=== PATIENT | female | born 2005 | race Caucasian/White ===

== ENCOUNTER 2025-09-17 04:18 | Day surgery (SDC) | payer OTHER, SELFPAY ==
[2025-09-16] VITALS (17 sets, daily range): BP systolic 78–114; BP diastolic 43–80; BMI 21.1
[2025-09-16 20:03] LABS: Urine Character Clear (Clear)
[2025-09-16 20:12] LABS: Glucose - Point of Care 110 mg/dl (70-99)
[2025-09-16 20:13] LABS: Hematocrit 36.3 % (37.0-47.0); Hemoglobin 12.4 g/dL (12.0-16.0); Mean Corp Hgb Conc. 34.2 g/dL (33.0-37.0); Mean Corpuscular Volume 93.3 fL (81.0-99.0); Nucleated Red Blood Cells % 0 %; Platelet Count 244 10^3/uL (130-400); Red Cell Dist. Width 12.3 % (11.5-14.5)
[2025-09-16 20:25] LABS: ALT (SGPT) 14 U/L (0-35); AST (SGOT) 20 U/L (14-36); Albumin 4.5 g/dl (3.5-5.0); Alkaline Phosphatase 70 U/L (38-126); Blood Urea Nitrogen 16 mg/dl (7-17); Calcium 9.1 mg/dl (8.4-10.2); Carbon Dioxide 23 mmol/L (22-30); Chloride 106 mmol/L (98-107); Glucose 78 mg/dl (70-99); Lipase 119 U/L (23-300); Potassium 4.4 mmol/L (3.5-5.1); Sodium 135 mmol/L (135-145); Total Protein 7.1 g/dl (6.3-8.2); eGFR > 60.00
[2025-09-16 20:32] LABS: Urine Squamous Cell >30 /LPF (Few)
[2025-09-16 20:33] LABS: Urine Red Blood Cell 0-2 /HPF (0-2)
[2025-09-16] MEDS: NSS 1000 IV (20:33)
[2025-09-16 20:36] LABS: HCG, Serum Qualitative Screen Negative
--- NOTE | 2025-09-16 20:37 | ED.GENMED ---
History of Present Illness
<Taylor Gutierrez PA-C - Last Filed: 09/17/25 07:48>
General
Chief Complaint: Abdominal Pain
Source: patient and family
Exam Limitations: none
Time Seen by Provider: 09/16/25 20:17
History of Present Illness
History of Present Illness:
20yoF with a history of prior ovarian cyst presenting for evaluation of abdominal pain. She reports an abrupt onset of right lower quadrant abdominal pain that began around noon today while her boyfriend was massaging her. Pain is described as
feeling like severe menstrual cramps. She had similar symptoms several years ago and was seen in the ED at that time and was diagnosed with a ruptured cyst. She was hypotensive in triage and brought immediately to an exam room. She denies any
syncope. No urinary symptoms. No prior abdominal surgeries. Her last menstrual period was 3 weeks ago and she denies chance of .
Phy Exam
<Taylor Gutierrez PA-C - Last Filed: 09/17/25 07:48>
Physical Exam
Physical Exam:
Pale, diaphoretic, in acute pain
General Physical Exam
General Presentation: moderate distress
General Skin: warm, diaphoretic and pale
General Mental: alert
ENT Exam
ENT Exam: normocephalic
Pulmonary Exam
Pulmonary Exam: no respiratory distress
Gastrointestinal Exam
Gastrointestinal Exam: soft, non distended and other (+Focal tenderness in R abdomen with rebound.)
Neurological Exam
Neurological Exam: alert
[place] Coma Scale
Eye Opening: Spontaneous
Verbal Response: Oriented
Motor Response: Obeys Commands
GCS Total Score: 15
Skin Exam
Skin Exam: diaphoresis and pallor
Psychiatric Exam
Psychiatric Exam: normal mood/affect
<Jose Taylor DO - Last Filed: 09/17/25 00:52>
[place] Coma Scale
GCS Total Score: 15
Course
<Taylor Gutierrez PA-C - Last Filed: 09/17/25 07:48>
Orders/Labs/Results
Orders:
Orders
09/16/25 19:57
Complete Blood Count/With Diff Urgent
Comprehensive Metabolic Panel Urgent
HCG, Serum Qualitative Screen Urgent
Comment: ADD ON
Lipase Urgent
Urinalysis Reflex To Culture Urgent
Date Specimen was Collected: 09/16/25
Time Specimen was Collected: 19:49
Urine Microscopic Reflex Cult Urgent
Urine Culture Urgent
ROLLY Source: U
Specimen Description:
Date Specimen was Collected: 09/16/25
Time Specimen was Collected: 19:49
09/16/25 20:27
US Pelvis Transvaginal Only Stat
Reason For Exam: severe RLQ pain, r/o torsion
09/16/25 20:28
0.9% Sodium Chloride 1000 ml [Nss] 1,000 ml IV BOLUS
09/16/25 20:36
Fentanyl Citrate/Pf [Sublimaze] 50 mcg IV NOW STA
09/16/25 20:46
Type+Screen Urgent
09/16/25 21:40
CT Abd/pel W Iv And Oral Contr Urgent
Comment:
Reason For Exam: RLQ pain
Iohexol [Omnipaque] See Protocol PO NOW STA
09/16/25 21:47
Fentanyl Citrate/Pf [Sublimaze] 50 mcg IV NOW STA
Ketorolac [Toradol] 15 mg IV NOW STA
09/16/25 21:48
Ondansetron Injectable [Zofran] 4 mg IV NOW STA
09/16/25 23:26
Fentanyl Citrate/Pf [Sublimaze] 50 mcg IV NOW STA
09/16/25 23:43
Hemoglobin Urgent
09/17/25 00:48
Fentanyl Citrate/Pf [Sublimaze] 25 mcg IV [id number] PRN
HYDROmorphone [Dilaudid] 0.25 mg IV PACU-Q5MPRN PRN
HYDROmorphone [Dilaudid] 0.5 mg IV PACU-Q5MPRN PRN
Ondansetron Injectable [Zofran] 4 mg IV PACU-ONCEPRN PRN
Prochlorperazine [Compazine] 5 mg IV PACU-ONCEPRN PRN
Notify MD As Directed
Notify physician if: for SDS patients with known or suspected sleep obstructive sleep apnea, monitor in the
PACU.
Notify MD for any apneic/desaturation episodes
09/17/25 01:00
Normosol (Mult Electrolytes) [Normosol-R/Plasmalyte-A] 1,000 ml IV PER PROTOCOL
09/17/25 01:38
Fentanyl Citrate/Pf [Sublimaze] 100 mcg .ROUTE .STK-MED ONE
Midazolam HCl [Versed] 2 mg .ROUTE .STK-MED ONE
09/17/25 01:45
Bupivacaine Mpf 0.25% [Sensorcaine-Mpf 0.25% Vial] 30 ml .ROUTE .STK-MED ONE
09/17/25 01:56
Fentanyl Citrate/Pf [Sublimaze] 25 mcg IV [id number] PRN
HYDROmorphone [Dilaudid] 0.25 mg IV PACU-Q5MPRN PRN
HYDROmorphone [Dilaudid] 0.5 mg IV PACU-Q5MPRN PRN
Ondansetron Injectable [Zofran] 4 mg IV PACU-ONCEPRN PRN
Prochlorperazine [Compazine] 5 mg IV PACU-ONCEPRN PRN
09/17/25 02:00
Normosol (Mult Electrolytes) [Normosol-R/Plasmalyte-A] 1,000 ml IV PER PROTOCOL
09/17/25 02:10
Dexamethasone Sod Phosphate [Decadron] 20 mg .ROUTE .STK-MED ONE
Lidocaine HCl/Pf [Xylocaine-Mpf 1% Vial] 50 mg .ROUTE .STK-MED ONE
Metoclopramide [Reglan] 10 mg .ROUTE .STK-MED ONE
Ondansetron Injectable [Zofran] 4 mg .ROUTE .STK-MED ONE
Phenylephrine HCl/0.9% NaCl [[place]ot-Synephrine] 1,000 mcg .ROUTE .STK-MED ONE
Propofol [Diprivan] 20 ml .ROUTE .STK-MED
Rocuronium [place] [Rocuronium] 50 mg .ROUTE .STK-MED ONE
09/17/25 02:26
ePHEDrine SULFATE [Emerphed] 50 mg .ROUTE .STK-MED ONE
09/17/25 02:29
Sugammadex Sodium [Bridion] 200 mg .ROUTE .STK-MED ONE
09/17/25 02:31
HYDROmorphone [Dilaudid] 1 mg .ROUTE .STK-MED ONE
Propofol [Diprivan] 20 ml .ROUTE .STK-MED
09/17/25 02:33
Acetaminophen 1000MG/100Ml [Ofirmev] 1,000 mg in 100 ml .ROUTE .STK-MED
09/17/25 04:04
Admit/Transfer Patient As Directed
Co-Sign Provider:
Level of Care: Post Proc/Surg Recovery
Assign to:: Medical/Surgical
Physician / Group: Chinedu
Transfer to: Medical/Surgical
Diagnosis: hemorrhagic left ovarian cyst with hemoperitoneum
Patient Condition: Good
Reason for Hospitalization: s/p dx lap evacuation of hemoperitoneum; left ovarian cystotomy
Expected length of stay greater than two midnights?: No
ELOS- Estimated Length of Stay in days: 1
I certify the patient meets the requirements for IP care: Yes
Reason for Overnight Stay: Bleeding/Bleeding Risk
PRN Pain Medication Management As Directed
May give lesser potent ordered pain med per pt: Yes
preference::
Protocol:: Medication orders for pain may be administered in a
manner that supports deferring to patient preference
when the pt is:
- Requesting an ordered lesser potent pain medication.
Least to most potent pain medications are defined
as: acetaminophen < NSAID < tramadol < opioids
(morphine, oxycodone, hydromorphone).
- Requesting a lesser dose of the same medication IF
ORDERED.
- Requesting a less intrusive route of administration
if both routes are prescribed by the provider (PO <
IV).
09/17/25 04:24
Acetaminophen [Tylenol] 650 mg PO Q4HPRN PRN
Ondansetron Injectable [Zofran] 4 mg IV Q6HPRN PRN
Oxycodone [Roxicodone] 2.5 mg PO Q4HPRN PRN
Oxycodone [Roxicodone] 5 mg PO Q4HPRN PRN
Simethicone [Mylicon] 80 mg PO Q6HPRN PRN
09/17/25 04:24
Admit Patient As Directed
Co-Sign Provider:
Level of Care: Post Proc/Surg Recovery
Assign to:: Medical/Surgical
Physician / Group: Chinedu
Diagnosis: s/p dx laparoscopy, evacuation hemoperitoneum, cystotomy left ovarian cyst
Patient Condition: Good
Reason for Hospitalization: dx laparoscopy left ovarian cystotomy, evacuation hemoperitoneum
Expected length of stay greater than two midnights?: No
ELOS- Estimated Length of Stay in days: 1
I certify the patient meets the requirements for IP care: Yes
Reason for Overnight Stay: Bleeding/Bleeding Risk
Diagnosis: post-operative hysterectomy
Activity As Directed
Activity Level: Out of Bed-Early Mobility
INT (Intravenous Needle Therapy) As Directed
Intake/ Output As Directed
Frequency: Per unit guidelines
Call for Urine Output less than: 30 mL over 1 hour
Comment: Strict Intake and Output
Notify MD As Directed
Notify physician if: Call doctor for temperature >100.4 F, systolic blood pressure > 150 or < 90, urine output
less than 30 mL over 1 hour, Pulse > 100 or < 50
Observe for Vaginal Bleeding As Directed
Pneumatic Compression Sleeves As Directed
Type: Knee high
Vital Signs As Directed
Frequency: Post-operative guidelines
Call for:: temp > 100.4 F, SBP > 150 or < 90, Pulse > 100 or < 50
Rx Incentive Spirometry [RESP] Routine
Frequency: q1h while awake
DX Deep Vein Thrombosis Video Routine
09/17/25 05:00
Ketorolac [Toradol] 15 mg IV Q6H
Lactated Ringers [Lr] 1,000 ml IV 125 mls/hr
09/17/25 Breakfast
Regular
At Your Request: Full Participation
Does patient need a safe tray?: Yes
Blood Urea Nitrogen IN AM
Creatinine IN AM
Electrolytes IN AM
09/17/25 07:06
Complete Blood Count/No Diff IN AM
Abnormal Lab Results
09/16/25 09/16/25 09/16/25
19:57 20:04 23:43
WBC 18.0 H 10^3/uL
(4.8-10.8)
RBC 3.89 L 10^6/uL
(4.20-5.40)
Hgb 9.0 L D g/dL
(12.0-16.0)
Hct 36.3 L %
(37.0-47.0)
MCH 31.9 H pg
(27.0-31.0)
Abs Immat Gran (auto) 0.1 H 10^3/uL
(0-0.05)
Absolute Neuts (auto) 14.4 H 10^3/uL
(1.4-6.5)
Absolute Monos (auto) 0.7 H 10^3/uL
(0.1-0.6)
Neutrophils % 79.9 H %
(42.2-75.2)
Lymphocytes % 15.1 L %
(20.5-51.1)
Leukocyte Esterase Rfl 1+ A
(Negative)
Urine Bacteria (Reflex) Many A
(Negative)
Urine Albumin (Reflex) 1+ A
(Neg - Trace)
POC Glucose 110 H mg/dl
(70-99)
09/16/25 23:43
09/16/25 19:57
Vital Signs
Initial and Last Documented VS:
Initial Vital Signs
Temp Pulse Resp BP Pulse Ox
98.4 F 127 22 114/80 99
09/16/25 19:45 09/16/25 19:45 09/16/25 19:45 09/16/25 19:45 09/16/25 19:45
Last Documented Vital Signs
Temp Pulse Resp BP Pulse Ox
97.4 F 77 19 99/48 98
09/17/25 06:00 09/17/25 06:00 09/17/25 06:00 09/17/25 06:00 09/17/25 06:00
[place];Jose Taylor, DO - Last Filed: 09/17/25 00:52>
Orders/Labs/Results
Orders:
Orders
09/16/25 19:57
Complete Blood Count/With Diff Urgent
Comprehensive Metabolic Panel Urgent
HCG, Serum Qualitative Screen Urgent
Comment: ADD ON
Lipase Urgent
Urinalysis Reflex To Culture Urgent
Date Specimen was Collected: 09/16/25
Time Specimen was Collected: 19:49
Urine Microscopic Reflex Cult Urgent
Urine Culture Urgent
ROLLY Source: U
Specimen Description:
Date Specimen was Collected: 09/16/25
Time Specimen was Collected: 19:49
09/16/25 20:27
US Pelvis Transvaginal Only Stat
Reason For Exam: severe RLQ pain, r/o torsion
09/16/25 20:28
0.9% Sodium Chloride 1000 ml [Nss] 1,000 ml IV BOLUS
09/16/25 20:36
Fentanyl Citrate/Pf [Sublimaze] 50 mcg IV NOW STA
09/16/25 20:46
Type+Screen Urgent
09/16/25 21:40
CT Abd/pel W Iv And Oral Contr Urgent
Comment:
Reason For Exam: RLQ pain
Iohexol [Omnipaque] See Protocol PO NOW STA
09/16/25 21:47
Fentanyl Citrate/Pf [Sublimaze] 50 mcg IV NOW STA
Ketorolac [Toradol] 15 mg IV NOW STA
09/16/25 21:48
Ondansetron Injectable [Zofran] 4 mg IV NOW STA
09/16/25 23:26
Fentanyl Citrate/Pf [Sublimaze] 50 mcg IV NOW STA
09/16/25 23:43
Hemoglobin Urgent
09/17/25 00:48
Fentanyl Citrate/Pf [Sublimaze] 25 mcg IV [id number] PRN
HYDROmorphone [Dilaudid] 0.25 mg IV PACU-Q5MPRN PRN
HYDROmorphone [Dilaudid] 0.5 mg IV PACU-Q5MPRN PRN
Ondansetron Injectable [Zofran] 4 mg IV PACU-ONCEPRN PRN
Prochlorperazine [Compazine] 5 mg IV PACU-ONCEPRN PRN
Notify MD As Directed
Notify physician if: for SDS patients with known or suspected sleep obstructive sleep apnea, monitor in the
PACU.
Notify MD for any apneic/desaturation episodes
09/17/25 01:00
Normosol (Mult Electrolytes) [Normosol-R/Plasmalyte-A] 1,000 ml IV PER PROTOCOL
09/17/25 01:38
Fentanyl Citrate/Pf [Sublimaze] 100 mcg .ROUTE .STK-MED ONE
Midazolam HCl [Versed] 2 mg .ROUTE .STK-MED ONE
09/17/25 01:45
Bupivacaine Mpf 0.25% [Sensorcaine-Mpf 0.25% Vial] 30 ml .ROUTE .STK-MED ONE
09/17/25 01:56
Fentanyl Citrate/Pf [Sublimaze] 25 mcg IV [id number] PRN
HYDROmorphone [Dilaudid] 0.25 mg IV PACU-Q5MPRN PRN
HYDROmorphone [Dilaudid] 0.5 mg IV PACU-Q5MPRN PRN
Ondansetron Injectable [Zofran] 4 mg IV PACU-ONCEPRN PRN
Prochlorperazine [Compazine] 5 mg IV PACU-ONCEPRN PRN
09/17/25 02:00
Normosol (Mult Electrolytes) [Normosol-R/Plasmalyte-A] 1,000 ml IV PER PROTOCOL
09/17/25 02:10
Dexamethasone Sod Phosphate [Decadron] 20 mg .ROUTE .STK-MED ONE
Lidocaine HCl/Pf [Xylocaine-Mpf 1% Vial] 50 mg .ROUTE .STK-MED ONE
Metoclopramide [Reglan] 10 mg .ROUTE .STK-MED ONE
Ondansetron Injectable [Zofran] 4 mg .ROUTE .STK-MED ONE
Phenylephrine HCl/0.9% NaCl [[place]-Synephrine] 1,000 mcg .ROUTE .STK-MED ONE
Propofol [Diprivan] 20 ml .ROUTE .STK-MED
Rocuronium [place] [Rocuronium] 50 mg .ROUTE .STK-MED ONE
09/17/25 02:26
ePHEDrine SULFATE [Emerphed] 50 mg .ROUTE .STK-MED ONE
09/17/25 02:29
Sugammadex Sodium [Bridion] 200 mg .ROUTE .STK-MED ONE
09/17/25 02:31
HYDROmorphone [Dilaudid] 1 mg .ROUTE .STK-MED ONE
Propofol [Diprivan] 20 ml .ROUTE .STK-MED
09/17/25 02:33
Acetaminophen 1000MG/100Ml [Ofirmev] 1,000 mg in 100 ml .ROUTE .STK-MED
09/17/25 04:04
Admit/Transfer Patient As Directed
Co-Sign Provider:
Level of Care: Post Proc/Surg Recovery
Assign to:: Medical/Surgical
Physician / Group: Chinedu
Transfer to: Medical/Surgical
Diagnosis: hemorrhagic left ovarian cyst with hemoperitoneum
Patient Condition: Good
Reason for Hospitalization: s/p dx lap evacuation of hemoperitoneum; left ovarian cystotomy
Expected length of stay greater than two midnights?: No
ELOS- Estimated Length of Stay in days: 1
I certify the patient meets the requirements for IP care: Yes
Reason for Overnight Stay: Bleeding/Bleeding Risk
PRN Pain Medication Management As Directed
May give lesser potent ordered pain med per pt: Yes
preference::
Protocol:: Medication orders for pain may be administered in a
manner that supports deferring to patient preference
when the pt is:
- Requesting an ordered lesser potent pain medication.
Least to most potent pain medications are defined
as: acetaminophen < NSAID < tramadol < opioids
(morphine, oxycodone, hydromorphone).
- Requesting a lesser dose of the same medication IF
ORDERED.
- Requesting a less intrusive route of administration
if both routes are prescribed by the provider (PO <
IV).
09/17/25 04:24
Acetaminophen [Tylenol] 650 mg PO Q4HPRN PRN
Ondansetron Injectable [Zofran] 4 mg IV Q6HPRN PRN
Oxycodone [Roxicodone] 2.5 mg PO Q4HPRN PRN
Oxycodone [Roxicodone] 5 mg PO Q4HPRN PRN
Simethicone [Mylicon] 80 mg PO Q6HPRN PRN
09/17/25 04:24
Admit Patient As Directed
Co-Sign Provider:
Level of Care: Post Proc/Surg Recovery
Assign to:: Medical/Surgical
Physician / Group: Chindeu
Diagnosis: s/p dx laparoscopy, evacuation hemoperitoneum, cystotomy left ovarian cyst
Patient Condition: Good
Reason for Hospitalization: dx laparoscopy left ovarian cystotomy, evacuation hemoperitoneum
Expected length of stay greater than two midnights?: No
ELOS- Estimated Length of Stay in days: 1
I certify the patient meets the requirements for IP care: Yes
Reason for Overnight Stay: Bleeding/Bleeding Risk
Diagnosis: post-operative hysterectomy
Activity As Directed
Activity Level: Out of Bed-Early Mobility
INT (Intravenous Needle Therapy) As Directed
Intake/ Output As Directed
Frequency: Per unit guidelines
Call for Urine Output less than: 30 mL over 1 hour
Comment: Strict Intake and Output
Notify MD As Directed
Notify physician if: Call doctor for temperature >100.4 F, systolic blood pressure > 150 or < 90, urine output
less than 30 mL over 1 hour, Pulse > 100 or < 50
Observe for Vaginal Bleeding As Directed
Pneumatic Compression Sleeves As Directed
Type: Knee high
Vital Signs As Directed
Frequency: Post-operative guidelines
Call for:: temp > 100.4 F, SBP > 150 or < 90, Pulse > 100 or < 50
Rx Incentive Spirometry [RESP] Routine
Frequency: q1h while awake
DX Deep Vein Thrombosis Video Routine
09/17/25 05:00
Ketorolac [Toradol] 15 mg IV Q6H
Lactated Ringers [Lr] 1,000 ml IV 125 mls/hr
09/17/25 Breakfast
Regular
At Your Request: Full Participation
Does patient need a safe tray?: Yes
Blood Urea Nitrogen IN AM
Creatinine IN AM
Electrolytes IN AM
09/17/25 07:06
Complete Blood Count/No Diff IN AM
Abnormal Lab Results
09/16/25 09/16/25 09/16/25
19:57 20:04 23:43
WBC 18.0 H 10^3/uL
(4.8-10.8)
RBC 3.89 L 10^6/uL
(4.20-5.40)
Hgb 9.0 L D g/dL
(12.0-16.0)
Hct 36.3 L %
(37.0-47.0)
MCH 31.9 H pg
(27.0-31.0)
Abs Immat Gran (auto) 0.1 H 10^3/uL
(0-0.05)
Absolute Neuts (auto) 14.4 H 10^3/uL
(1.4-6.5)
Absolute Monos (auto) 0.7 H 10^3/uL
(0.1-0.6)
Neutrophils % 79.9 H %
(42.2-75.2)
Lymphocytes % 15.1 L %
(20.5-51.1)
Leukocyte Esterase Rfl 1+ A
(Negative)
Urine Bacteria (Reflex) Many A
(Negative)
Urine Albumin (Reflex) 1+ A
(Neg - Trace)
POC Glucose 110 H mg/dl
(70-99)
09/16/25 23:43
09/16/25 19:57
Vital Signs
Initial and Last Documented VS:
Initial Vital Signs
Temp Pulse Resp BP Pulse Ox
98.4 F 127 22 114/80 99
09/16/25 19:45 09/16/25 19:45 09/16/25 19:45 09/16/25 19:45 09/16/25 19:45
Last Documented Vital Signs
Temp Pulse Resp BP Pulse Ox
97.4 F 77 19 99/48 98
09/17/25 06:00 09/17/25 06:00 09/17/25 06:00 09/17/25 06:00 09/17/25 06:00
<Taylor Gutierrez PA-C - Last Filed: 09/17/25 07:48>
MDM/Problems Addressed
Differential Diagnosis Includes:
20yoF here with RLQ abd pain that began abruptly this afternoon. Patient pale and diaphoretic on initial exam and in severe pain. Rebound tenderness on exam. BP 91/64. Differential diagnosis includes: ovarian torsion, ruptured ectopic ,
ruptured ovarian cyst, appendicitis
Initial ED plan: Labs obtained in triage. White count 18. Remainder of labs unremarkable. Bedside ultrasound performed with Dr. Taylor. Free fluid noted in Morison's pouch. HCG still pending. STAT transvaginal ultrasound ordered to evaluate
for ectopic or ovarian torsion. IV fluid bolus and fentanyl ordered for pain.
Final assessment: HCG testing negative. US is negative for torsion. Complex pelvic ascites noted. 'Masslike structure in the right pelvis, incompletely characterized by ultrasound. Unclear if this is within the adnexa or represents an adjacent
process in the right lower quadrant, such as the sequela of appendicitis.' CT abdomen with IV/PO contrast ordered.
<Taylor Gutierrez PA-C - Last Filed: 09/17/25 07:48>
*Pulse Oximetry
SaO2: 99
Oxygen Mode of Delivery: Room air
Patient hypoxic: no
<Jose Taylor DO - Last Filed: 09/17/25 00:52>
*Critical Care Note
Total Time (30-74mins, 75-104mins- exclusive of procedures): 50 min
ED Attending Note
<Taylor Gutierrez PA-C - Last Filed: 09/17/25 07:48>
-
Portions of this chart may have been created with voice recognition software.� Occasional wrong word or��sound alike� substitutions may have occurred due to the inherent limitations of voice recognition software.
<Jose Taylor DO - Last Filed: 09/17/25 00:52>
ED Attending Note
Patient seen and examined by attending physician: Yes
I performed the substantive portion of visit, reviewed & personally made and approve the management plan that is documented in note by myself or JOSS.: Yes
ED Attending Note:
I agree with Esmer's note
20-year-old female presents with severe abdominal pain. Pain began fairly suddenly around noon. Pain increased in intensity prompting her to come to the emergency room. Upon arrival here the patient looks quite uncomfortable. She was described
as pale and hypotensive in triage. Patient states there is no chance she is . No recent trauma.
General: Awake, Alert, Oriented X3. Appears uncomfortable due to abdominal pain, pale
Vitals: Tachycardic on arrival but not tachycardic on my evaluation.
Head: Atraumatic
Eyes: Pupils equal, EOMI
Throat: Airway intact, no exudates
Neck: Trachea midline
Lungs: Clear and equal b/l
Heart: Regular rate, no murmurs
Abd: Soft, significant tenderness bilateral lower abdomen, No pulsatile mass
Neuro: Nonfocal
Skin: Warm, pale
Patient arrives quite uncomfortable from pelvic pain. Initial concerns were ovarian torsion, ectopic , ruptured hemorrhagic cyst. Patient treated with IV fluids, IV analgesia. Urgent ultrasound performed at the bedside. No evidence of
ovarian torsion. Complex right adnexal mass suspected on ultrasound of unclear etiology. Therefore CT of the abdomen pelvis was obtained. This shows hemoperitoneum and a suspected source of bleeding from a left corpus luteum. Patient has
received aliquots of 50 mcg of fentanyl for pain control. She received 2 L IV fluid. She has remained relatively hemodynamically stable. Hemoglobin repeated and it has decreased from 12.4-9. Case discussed with Dr. Che who immediately came
to the emergency room to evaluate the patient. Plan is to take to the operating room for definitive management of hemorrhagic cyst
Critical care statement: A total of 50 minutes of critical care time was provided for this patient. This includes management of unstable vital signs, evaluation of the patient at bedside, reviewing the patient's pertinent medical records, discussion
with consultants, review of old EKGs and review of pertinent medical records. This time with separate from time utilized to perform the aforementioned documented procedures
Discharge Plan
Departure
Patient Disposition: Admit
Date of Disposition: 09/17/25
Time of Disposition: 00:44
Presentation/result/management discussed w/ accepting MD/DO: Hospitalist
Condition: Fair
Discharge Problem:
Hemoperitoneum, Hemorrhagic cyst of ovary
Interventions
Interventions:
*Risk Screen - Suicide Last Done: 09/16/25 19:45
*General Assessment Last Done: 09/16/25 19:45
*Neglect/Abuse Screening Last Done: 09/16/25 19:45
*ED- Fall Risk Assessment Last Done: 09/16/25 20:23
*ED COVID-19 Vaccine History Last Done: 09/16/25 19:45
*ED Influenza Vaccine History Last Done: 09/16/25 19:45
*Nursing Disposition Last Done: 09/17/25 01:50
EQ-Uvxmnr-Jzgloukoey Assessment Last Done: 09/16/25 20:23
Discharge Date and Time
Discharge Date/Time: 09/17/25 01:51
[2025-09-16] MEDS: SUBLIMAZE 50 MCG IV ×3 (20:39→23:32)
[2025-09-16] MEDS: OMNIPAQUE 50 ML PO (21:53)
[2025-09-16] MEDS: ZOFRAN 4 MG IV (21:53)
[2025-09-16] MEDS: TORADOL 15 MG IV (21:54)
[2025-09-17] VITALS (12 sets, daily range): BP systolic 80–113; BP diastolic 44–64; BMI 21.0
[2025-09-17 00:01] LABS: Hemoglobin 9.0 g/dL (12.0-16.0)
--- NOTE | 2025-09-17 04:11 | W.IMMPOSTOP ---
Surgical Immed Post Op Note
-
Primary Surgeon: Xin Che DO
Assisting Surgeon: none
Pre-op Diagnosis: RLQ abdominal pain; complex pelvic fluid, suspected hemoperitoneum, ovarian cyst
Post-op Diagnosis: RLQ abdominal pain; hemoperitoneum, left ovarian corpus luteal cyst with hemorrhage
Procedure Performed: Dx laparoscopy, evacuation of hemoperitoneum, left ovarian cystotomy
Anesthesia Type: general ET. Wilma Vargas
Specimen / Cultures: none
Estimated Blood Loss: 10ml
Complications: none
Operative Findings: Normal appearing uterus, tubes and right ovary. Left ovary with 3cm corpus luteal cyst with hemorrhage. Large hemoperitoneum.
Descending colon with some filmy adhesions to abdominal wall. No evidence of endometriosis. Small pelvic peritoneal pocket noted near left uterosacral ligament.
Hemoperitoneum approx 400ml evacuated.
Counts correct times 2.
Stable to recovery.
Reviewed operative fidnings with pt and her Mother.
[2025-09-17] MEDS: TORADOL 15 MG IV (05:44)
[2025-09-17] MEDS: LR 1000 IV (05:45)
--- NOTE | 2025-09-17 06:34 | PTCARENOTE ---
Recieved pt from pacu at 0500 s/p left ovarian cystotomy, evacuation of hemoperitoneum, no c/o pain made, a,ox3, ambulated to bathroom voided, no vaginal bleeding noted.
[2025-09-17 07:51] LABS: Hematocrit 24.6 % (37.0-47.0); Hemoglobin 8.5 g/dL (12.0-16.0); Mean Corp Hgb Conc. 34.6 g/dL (33.0-37.0); Mean Corpuscular Volume 91.1 fL (81.0-99.0); Platelet Count 156 10^3/uL (130-400); Red Cell Dist. Width 12.5 % (11.5-14.5)
[2025-09-17 08:17] LABS: Blood Urea Nitrogen 9 mg/dl (7-17); Carbon Dioxide 22 mmol/L (22-30); Chloride 108 mmol/L (98-107); Estimated Creatinine Clearance 104 ml/min; Potassium 4.0 mmol/L (3.5-5.1); Sodium 132 mmol/L (135-145)
[2025-09-17] MEDS: TYLENOL 650 MG PO (09:43)
--- NOTE | 2025-09-17 11:08 | W.PN.OBG.DWH ---
Today's Communication / Plan
-
dc home today
Assessment/Plan
-
Postop s/p Dx Laparoscopy with left ovarian cystotomy, evacuation of hemoperitoneum from hemorrhagic corpus luteal cyst left ovary
Hemodynamically stable.
Anemia related to blood loss from hemorrhagic cyst- change in hgb within expected after surgery. EBL was only 10ml. Loss is from hemoperitoneum.
-Rec iron sulfate with vit C.
Stable for dc home today.
Reviewed operative findings.
Reviewed restrictions with activity. Recommend follow up appt in next 2-4 wks ( she is away at school and will be home mid September.)
Reviewed to go to ER for chest pain, SOB, severe pain, dizziness or lightheadedness.
D/C home
Subjective Data
-
Feeling well. Denies dizziness or lightheadedness. Has been up to bathroom several times.
Slight pink with wiping.
Pain is manageable.
Here with her Mother
Objective Data
-
Laboratory Results
09/17/25 07:06
09/17/25 07:06
Vital Signs
Temp Pulse Resp BP Pulse Ox
98.6 F 87 16 93/51 97
09/17/25 08:50 09/17/25 08:50 09/17/25 08:50 09/17/25 08:50 09/17/25 08:50
VSS afeb
Cor regular
Abd: soft NDNT nondistended. Mildly tender- appropriately. Incisions clean, dry and intact.
Ext: no calf pain
--- NOTE | 2025-09-17 11:26 | W.DS.TRANS ---
DC Summary - Incoming Inspector
-
Discharge Instructions:
Discharge Diagnosis/Procedures hemoperitoneum, hemorrhagic cyst with
intraperitoneal hemorrhage, left ovarian
cystotomy, control of bleeding
Diet Regular
Activity No strenuous activity
Driving Restrictions No driving for 1 week
Bathing Restrictions OK to Shower
Instructions:
Stand-Alone Forms:
Changes to Home Medications: No
Discharge Medications:
DC Medications w/original date entered in [employer]
acetaminophen 325 mg tablet 650 mg (2 x 325 mg) PO Q4HPRN PRN mild pain #0 tabs 09/17/25
oxycodone 5 mg tablet 2.5 mg (1/2 x 5 mg) PO Q4HPRN PRN moderate pain #5 tabs 09/17/25
Home Medication Changes
Pending Results: No
Total time spent discharging patient (in min): 30
--- NOTE | 2025-09-17 11:39 | W.IMMPOSTOP ---
Surgical Immed Post Op Note
-
Primary Surgeon: Anna Che,
Assisting Surgeon: none
Pre-op Diagnosis: Right lower quadrant abdominal pain, large amount complex fluid in pelvis, pelvic mass
Post-op Diagnosis: right lower quadrant abdominal pain, large hemoperitoneum, left ovarian hemorrhagic corpus luteal cyst with hemorrhage
Procedure Performed: diagnostic laparoscopy with evacuation of large hemoperitoneum, left ovarian cystostomy, control of bleeding
Anesthesia Type: general ET Dr. Dillon
Specimen / Cultures: none
Estimated Blood Loss: 10ml
Complications: none
Operative Findings: normal appearing uterus, tubes and right ovary. Large pelvic hemoperitoneum-400ml blood evacuated. Left ovary with 3 cm hemorrhagic corpus luteal cyst.
Unable to visualize appendix.
Counts correct times 2.
Stable to recovery.
--- NOTE | 2025-09-17 12:13 | CM ---
Patient will d/c home today. Initial assessment completed. Postop s/p Dx Laparoscopy with left ovarian cystotomy, evacuation of hemoperitoneum from hemorrhagic corpus luteal cyst left ovary.
Patient resides w/ parents in multi level home. Independent. College student. No DME. No therapy hx
PCP: Janet Jacob
Pharmacy: [facility] [place]
Plan: Home today, no needs
== END 2025-09-17 12:25 | disposition home or self-care (01) ==
LOC: PACU 04:18
PROVIDERS: ATTENDING PHYSICIAN Obstetrics & Gynecology; EMERGENCY PHYSICIAN Emergency Medicine; FAMILY PHYSICIAN Family Medicine
DX: N83.202 Unspecified ovarian cyst, left side (principal); K66.1 Hemoperitoneum; N83.8 Other noninflammatory disorders of ovary, fallopian tube and broad ligament
CPT/HCPCS: 58662; 74177; 76830; 80051; 80053; 81003; 81015; 82565; 82962; 83690; 84520; 84703; 85018; 85025; 85027; 86850; 86900; 86901; 87086; 99291; Q9967